=== PATIENT | male | born 1955 | race Caucasian/White ===

== ENCOUNTER 2017-10-19 10:47 | Inpatient (IN) | payer OTHER ==
[~2017-10-19] VITALS: Ht 177.8 cm; Wt 66.5 kg
[2017-10-19] MEDS ORDERED: SODIUM CHLORIDE 0.9% 1,000 ML IV ONE (11:18)
[2017-10-19 12:02] LABS: Basophils # (auto) 0 uL; Basophils % (auto) 0.3 % (0.0-2.0); Eosinophils # (auto) 0 uL; Eosinophils % (auto) 0.8 % (0.0-7.0); Hematocrit 25.8 % (41.0-53.0); Hemoglobin 9.1 g/dL (13.5-17.5); Lymphocytes # (auto) 0.5 uL; Lymphocytes % (auto) 9.4 % (10.0-50.0); Mean Corpuscular Hgb Conc. 35.3 g/dL (32.0-36.0); Mean Corpuscular Volume 93.5 fL (80.0-100.0); Monocytes # (auto) 0.4 uL; Monocytes % (auto) 6.6 % (0.0-12.0); Neutrophils # (auto) 4.7 uL; Neutrophils % (auto) 82.9 % (37.0-80.0); Platelet Count (auto) 243 10^3/uL (140-450); Red Blood Cells 2.76 10^6/uL (4.5-5.90); Red Cell Distribution Width 14.4 % (11.8-14.3); White Blood Cell 5.7 10^3/uL (4.4-10.8)
[2017-10-19 12:08] LABS: INR 0.95 (0.9-1.15); Prothrombin Time 10.4 sec (9.37-12.3)
[2017-10-19 12:16] LABS: Albumin 2.9 g/dL (3.4-5.0); BUN/Creatinine Ratio 67.2; Potassium 4.2 mmol/L (3.5-5.1)
[2017-10-19 12:23] LABS: Bilirubin, Total 0.4 mg/dL (0.2-1.0); Total Protein 5.6 g/dL (6.4-8.2)
[2017-10-19] MEDS: SODIUM CHLORIDE 0.9% 1,000 ML IV SCH (13:52)
[2017-10-19] MEDS ORDERED: TEMAZEPAM 15 MG CAP PO PRN (14:00)
[2017-10-19] MEDS ORDERED: HYDROcodone-ACET 5/325MG TAB PO PRN (14:00)
[2017-10-19] MEDS ORDERED: NITROGLYCERIN 0.4 MG SL TAB SL PRN (14:00)
[2017-10-19] MEDS ORDERED: MORPHINE SULFATE 4 MG/ML SYR/VIAL IV PRN ×2 (14:00)
[2017-10-19] MEDS ORDERED: ACETAMINOPHEN 500 MG TAB PO PRN (14:00)
[2017-10-19] MEDS ORDERED: LACTULOSE 20Gm/30ML SOLN PO PRN (14:00)
[2017-10-19] MEDS ORDERED: PROMETHAZINE HCL 25 MG/ML 1ML IV PRN (14:00)
[2017-10-19] MEDS ORDERED: LORazepam 2MG/ML-1ML VIAL IV PRN (14:00)
[2017-10-19] MEDS ORDERED: LABETALOL HCL 5 MG/ML ML 20ML VIAL IV PRN (14:00)
[2017-10-19] MEDS ORDERED: LORazepam 0.5 MG TAB PO PRN (14:00)
[2017-10-19 14:29] LABS: Folate (Folic Acid) 11.47 ng/mL (5.38-24)
[2017-10-19 21:00] VITALS: BP 117/63
[2017-10-19 22:00] VITALS: BP 117/63
[2017-10-19 23:24] LABS: Urine Bacteria NONE SEEN /hpf (None Seen); Urine Blood Negative /uL (Negative); Urine Specific Gravity 1.012 (1.001-1.035); Urine WBC 2 /hpf (0 - 3)
[2017-10-20 00:05] LABS: Alcohol, Urine < 3.0 mg/dL (0-5); Amphetamine Screen, Urine NEGATIVE (NEGATIVE); Barbiturate Scree,Urine NEGATIVE (NEGATIVE); Benzodiazephine Screen, Urine NEGATIVE (NEGATIVE); Cannabinoid Screen, Urine NEGATIVE (NEGATIVE); Cocaine Screen, Urine NEGATIVE (NEGATIVE); Opiate Scree,Urine NEGATIVE (NEGATIVE); Phencyclidine Screen, Urine NEGATIVE (NEGATIVE)
[2017-10-20] MEDS: SODIUM CHLORIDE 0.9% 1,000 ML IV SCH ×4 (01:42→22:29)
[2017-10-20 05:21] VITALS: BP 135/63
[2017-10-20 06:31] LABS: Albumin 2.9 g/dL (3.4-5.0); BUN/Creatinine Ratio 110.3; Calcium 8.1 mg/dL (8.5-10.1); Potassium 4.5 mmol/L (3.5-5.1)
[2017-10-20 06:34] LABS: Bilirubin, Total 0.4 mg/dL (0.2-1.0); Total Protein 5.7 g/dL (6.4-8.2)
[2017-10-20 09:00] VITALS: BP 114/58
[2017-10-20 13:00] VITALS: BP 120/61
[2017-10-20] MEDS ORDERED: IBUPROFEN 400 MG TAB PO PRN (14:30)
[2017-10-20 16:56] VITALS: BP 120/55
[2017-10-20] MEDS ORDERED: Isosource 1.5 Cal 1 Liter GT SCH (18:45)
[2017-10-20 22:00] VITALS: BP 127/65
[2017-10-21 05:00] VITALS: BP 130/60
[2017-10-21 08:00] VITALS: BP 142/67
[2017-10-21] MEDS: SODIUM CHLORIDE 0.9% 1,000 ML IV SCH ×3 (10:54→20:50)
[2017-10-21 12:00] VITALS: BP 119/58
[2017-10-21 17:00] VITALS: BP 149/71
[2017-10-21 22:00] VITALS: BP 152/63
[2017-10-22] MEDS: SODIUM CHLORIDE 0.9% 1,000 ML IV SCH ×2 (03:50→13:12)
[2017-10-22 04:42] VITALS: BP 132/64
[2017-10-22 09:00] VITALS: BP 128/65
[2017-10-22 13:00] VITALS: BP 134/67
[2017-10-22 17:27] VITALS: BP 130/65
== END 2017-10-22 18:00 | disposition left against medical advice (07) | DRG 315 ==
LOC: ER 10:47 → TELE 10:48 → TELE-WESTW 21:00
PROVIDERS: ADMIT Internal Medicine; ATTEND Family Medicine
DX: I95.9 Hypotension, unspecified (principal); N17.9 Acute kidney failure, unspecified; R56.9 Unspecified convulsions; E87.1 Hypo-osmolality and hyponatremia; Z93.1 Gastrostomy status; N13.30 Unspecified hydronephrosis; C14.0 Malignant neoplasm of pharynx, unspecified; D64.9 Anemia, unspecified; E86.0 Dehydration; E86.9 Volume depletion, unspecified; F41.9 Anxiety disorder, unspecified; I10 Essential (primary) hypertension; N40.0 Benign prostatic hyperplasia without lower urinary tract symptoms; Z53.21 Procedure and treatment not carried out due to patient leaving prior to being seen by health care provider; K59.00 Constipation, unspecified; G47.00 Insomnia, unspecified; R73.9 Hyperglycemia, unspecified; K40.20 Bilateral inguinal hernia, without obstruction or gangrene, not specified as recurrent; Z80.6 Family history of leukemia; Z85.819 Personal history of malignant neoplasm of unspecified site of lip, oral cavity, and pharynx; Z92.21 Personal history of antineoplastic chemotherapy; Z92.3 Personal history of irradiation; Z87.81 Personal history of (healed) traumatic fracture
CPT/HCPCS: 36415; 70450; 71045; 76775; 80053; 80307; 81001; 82550; 82607; 82746; 83880; 84154; 84443; 84484; 85025; 85610; 85652; 85730; 93005; 93306; 93886; 95819; 96360; 96361